=== PATIENT | male | born 1930 | race Caucasian/White ===

== ENCOUNTER → 2017-02-18 | Outpatient (REF) | payer MEDICARE, OTHER ==
[2017-02-18 13:29] LABS: ALBUMIN/GLOBULIN RATIO 1.38 (1.00-1.93); BILIRUBIN,TOTAL 0.5 MG/DL (0.2-1.0); CALCIUM LEVEL 8.8 MG/DL (8.8-10.2); CREATININE FOR GFR 1.82 MG/DL (0.70-1.30); GLOMERULAR FILTRATION RATE 37.6 (>35); TOTAL PROTEIN 6.9 GM/DL (6.4-8.2)
[2017-02-18 13:32] LABS: POTASSIUM SERUM 5.6 MEQ/L (3.5-5.1)
== END ==
LOC: M SFHCADAM 08:07
PROVIDERS: ATTEND Physician Assistant
DX: I12.9 Hypertensive chronic kidney disease with stage 1 through stage 4 chronic kidney disease, or unspecified chronic kidney disease (principal); E11.9 Type 2 diabetes mellitus without complications; E87.5 Hyperkalemia; N18.3 Chronic kidney disease, stage 3 (moderate)

== ENCOUNTER → 2017-03-17 | Outpatient (REF) | payer MEDICARE, OTHER ==
[2017-03-17 12:43] LABS: MEAN CORPUSCULAR HEMOGLOBIN 30.4 pg (27.0-33.0); MEAN CORPUSCULAR HGB CONC 33.9 g/dl (32.0-36.5); MEAN CORPUSCULAR VOLUME 89.8 fl (80.0-96.0); RED CELL DISTRIBUTION WIDTH 12.9 % (11.5-14.5); WHITE BLOOD COUNT 9.5 K/mm3 (4.0-10.0)
[2017-03-17 12:53] LABS: CREATININE FOR GFR 1.46 MG/DL (0.70-1.30); GLOMERULAR FILTRATION RATE 48.5 (>35); POTASSIUM SERUM 4.5 MEQ/L (3.5-5.1)
== END ==
LOC: M SFHCADAM 08:04
PROVIDERS: ATTEND Physician Assistant
DX: N18.3 Chronic kidney disease, stage 3 (moderate) (principal); I12.9 Hypertensive chronic kidney disease with stage 1 through stage 4 chronic kidney disease, or unspecified chronic kidney disease

== ENCOUNTER → 2017-05-04 | Outpatient (REF) | payer MEDICARE, OTHER | LOC: M LAB REF 13:10 | PROVIDERS: ATTEND Internal Medicine Nephrology | DX: N18.3 Chronic kidney disease, stage 3 (moderate) (principal) ==

== ENCOUNTER → 2017-05-07 | Outpatient (CLI) | payer MEDICARE, OTHER ==
--- NOTE | 2017-05-07 08:34 | REP ---
Renal ultrasound: The right kidney measures 10.3 x 4.0 x 5.9 cm. Left kidney measures 10.3 x 5.5 x 5.0 cm. The kidneys are normal size. Renal cortical echogenicity is upper normal bilaterally. There is no hydronephrosis on the right on the left. There are no renal calculi. No renal masses. There is a 6 ml upper pole cyst in the right kidney. The 10 mm lower pole cyst in the left kidney. The bladder is nondistended and cannot be evaluated. Impression: Renal cortical echogenicity is upper normal bilaterally. There is a single right renal cyst and a single left renal cyst. Otherwise, negative renal ultrasound. Signed by Cecil Quintero MD 05/07/2017 08:25 A
== END ==
LOC: M RAD 07:32
PROVIDERS: ATTEND Internal Medicine Nephrology
DX: N18.3 Chronic kidney disease, stage 3 (moderate) (principal); I12.9 Hypertensive chronic kidney disease with stage 1 through stage 4 chronic kidney disease, or unspecified chronic kidney disease; N28.1 Cyst of kidney, acquired

== ENCOUNTER → 2017-07-05 | Outpatient (REF) | payer MEDICARE, OTHER | LOC: M LAB REF 13:15 | PROVIDERS: ATTEND Internal Medicine Nephrology | DX: R80.9 Proteinuria, unspecified (principal); I12.9 Hypertensive chronic kidney disease with stage 1 through stage 4 chronic kidney disease, or unspecified chronic kidney disease; N18.3 Chronic kidney disease, stage 3 (moderate) ==

== ENCOUNTER → 2017-11-22 | Outpatient (REF) | payer MEDICARE, OTHER ==
[2017-11-22 15:25] LABS: FERRITIN 138 NG/ML (26-388); IRON (FE) 88 UG/DL (65-175); PERCENT SATURATION 34.8 % (19.7-50.0); TOTAL IRON BINDING CAPACITY 253 UG/DL (250-450)
== END ==
LOC: M LAB REF 13:32
DX: N18.9 Chronic kidney disease, unspecified (principal); D63.1 Anemia in chronic kidney disease
CPT/HCPCS: 83550

== ENCOUNTER → 2018-02-23 | Outpatient (REF) | payer MEDICARE, OTHER ==
[2018-02-23 13:20] LABS: TOTAL 25(OH) VITAMIN D 26.8 NG/ML (30.0-100.0)
[2018-02-23 13:29] LABS: ALBUMIN 3.8 GM/DL (3.2-5.2); ALBUMIN/GLOBULIN RATIO 1.19 (1.00-1.93); ALKALINE PHOSPHATASE 101 U/L (45-117); ALT/SGPT 17 U/L (12-78); ANION GAP 7 MEQ/L (8-16); AST/SGOT 13 U/L (7-37); BILIRUBIN,TOTAL 0.5 MG/DL (0.2-1.0); BLOOD UREA NITROGEN 23 MG/DL (7-18); CALCIUM LEVEL 8.7 MG/DL (8.8-10.2); CARBON DIOXIDE LEVEL 25 MEQ/L (21-32); CHLORIDE LEVEL 109 MEQ/L (98-107); CREATININE FOR GFR 1.55 MG/DL (0.70-1.30); GLOMERULAR FILTRATION RATE 45.2 (>35); GLUCOSE, FASTING 196 MG/DL (70-100); POTASSIUM SERUM 4.8 MEQ/L (3.5-5.1); SODIUM LEVEL 141 MEQ/L (136-145)
[2018-02-23 13:49] LABS: ESTIMATED AVERAGE GLUCOSE 151 MG/DL (60-110); HEMOGLOBIN A1c 6.9 %
== END ==
LOC: M SFHCADAM 08:09
DX: E87.5 Hyperkalemia (principal); I12.9 Hypertensive chronic kidney disease with stage 1 through stage 4 chronic kidney disease, or unspecified chronic kidney disease; E11.9 Type 2 diabetes mellitus without complications; N18.3 Chronic kidney disease, stage 3 (moderate)
CPT/HCPCS: 80053